=== PATIENT | female | born 1965 | race American Indian/Alaskan Native ===

== ENCOUNTER 2018-08-27 08:46 | Emergency (ER) | payer BC ==
[2018-08-27 08:53] VITALS: BP 143/82
--- NOTE | 2018-08-27 09:23 | Emergency Department Report ---
HPI - General Chief Complaint: Neck Pain/Injury Time Seen by Provider: 08/27/18 08:59 - HPI HPI: 53-year-old female presents to the emergency department with complaint of some anterior neck swelling that she has noticed over the past week . She feels like sometimes there is a fullness there and it makes it difficult to swallow, although she denies any drooling or trismus. On top of this, she also complains of some nonspecific fatigue. She denies any fever, actual sore throat, nausea, vomiting. She has a past medical history of hypertension and anemia. She goes to [facility] primary care. Her mother has a history of thyroid cancer. ED Past Medical Hx - Past Medical History Previous Medical History?: Yes Hx Hypertension: Yes Additional medical history: anemia - Surgical History Past Surgical History?: Yes Hx Appendectomy: Yes Additional Surgical History: fibroid - Social History Smoking Status: Never Smoker Substance Use Type: Alcohol, Prescribed - Medications Home Medications: Home Medications Medication Instructions Recorded Confirmed Last Taken Type Ibuprofen [Motrin] 800 mg PO Q8H PRN #14 tablet 03/15/14 Unknown Rx Metaxalone [Skelaxin] 800 mg PO TID PRN #15 tablet 09/29/15 Unknown Rx traMADol [Ultram 50 MG tab] 50 mg PO Q6HR PRN #14 tablet 09/29/15 Unknown Rx ED Review of Systems ROS: Stated complaint: NECK Other details as noted in HPI Constitutional: other (fatigue). denies: chills, fever Eyes: denies: eye pain, vision change ENT: throat pain. denies: ear pain Respiratory: denies: cough, shortness of breath Cardiovascular: denies: chest pain, palpitations Gastrointestinal: denies: abdominal pain, vomiting Genitourinary: denies: dysuria, discharge Musculoskeletal: denies: back pain, arthralgia Skin: denies: rash, lesions Neurological: denies: headache, numbness Physical Exam - Physical Exam Vital Signs: Vital Signs 08/27/18 08:49 Temperature 98.7 F Pulse Rate 94 H Respiratory 18 Rate Blood Pressure 143/82 O2 Sat by Pulse 99 Oximetry Physical Exam: GENERAL: The patient is well-developed well-nourished. HENT: Normocephalic. Atraumatic. Patient has moist mucous membranes. Oropharynx is clear. No drooling or trismus. EYES: Extraocular motions are intact. Pupils equal reactive to light bilaterally. NECK: Supple. Trachea is midline. There is some anterior neck fullness concerning for a thyroid goiter versus mass. CHEST/LUNGS: Clear to auscultation. There is no respiratory distress noted. HEART/CARDIOVASCULAR: Regular. There is no tachycardia. There is no murmur. ABDOMEN: Abdomen is soft, nontender. Patient has normal bowel sounds. There is no abdominal distention. SKIN: Skin is warm and dry. NEURO: The patient is awake, alert, and oriented. The patient is cooperative. The patient has normal speech. MUSCULOSKELETAL: There is no tenderness or deformity. There is no evidence of acute injury. ED Course Vital Signs 08/27/18 08:49 Temperature 98.7 F Pulse Rate 94 H Respiratory 18 Rate Blood Pressure 143/82 O2 Sat by Pulse 99 Oximetry ED Medical Decision Making - Lab Data Result diagrams: 08/27/18 09:28 08/27/18 09:28 - Radiology Data Radiology results: report reviewed EXAM: CT NECK WO CON HISTORY: Anterior neck swelling/pain. Fam hx of thyroid Ca X 1 WEEK AND A HALF. TECHNIQUE: Spiral axial CT images are obtained through the neck from the skull base to the thoracic inlet without the administration of intravenous contrast. Additional sagittal and coronal reformatted images are reconstructed. COMPARISON: None available. FINDINGS: ADENOIDS AND TONSILS: There is no gross enlargement of the adenoids to suggest adenoiditis/pharyngitis. The palatine and lingual tonsils are within normal limits. No tonsillar/peritonsillar fluid collection reminiscent of abscess is seen. No parapharyngeal or retropharyngeal fluid collection or abscess formation is noted. AERODIGESTIVE TRACT: The upper aerodigestive tract, including the epiglottis, vallecula, piriform sinuses, vocal cords, with vocal folds, and proximal trachea, are within normal limits. GLANDS: There is an approximately 3.5 cm CC by 2.2 cm transverse by 2.8 cm AP soft tissue mass in the medial left lobe of the thyroid tiny: DDX includes (but is not limited to) thyroid neoplasm. Correlation with ultrasound and/or nuclear medicine thyroid scan may be beneficial. The parotid glands and salivary glands are within normal limits. LYMPH NODES: There is nonspecific shotty submental (left greater than right), submandibular, and cervical chain lymphadenopathy, presumed reactive lymphadenopathy, but cannot rule out malignant lymphadenopathy; largest left submental lymph node measuring approximately 1.2 cm x 9.3 mm x 9.4 mm. CAROTID SHEATH: The carotid arteries and jugular veins appear grossly unremarkable for a non- dedicated exam. MUSCULOSKELETAL: The cervical muscles, including the sternocleidomastoid muscles and paraspinal muscles, are within normal limits. There is no abnormal soft tissue mass is seen. The visualized bony structures are within normal limits. MISCELLANEOUS: No radiodense foreign body is seen. There is a large (approximately 3.6 cm AP by 2.8 cm transverse by 2.7 cm CC) right maxillary sinus mass, presumed mucous retention cyst or polyp. Clinical correlation is advised. Correlation postcontrast CT and/or MRI may be beneficial for further characterization. IMPRESSION: 1. Approximately 3.5 cm CC by 2.2 cm transverse by 2.8 cm AP soft tissue mass in the medial left lobe of the thyroid tiny: DDX includes (but is not limited to) thyroid neoplasm. Correlation with ultrasound and/or nuclear medicine thyroid scan may be beneficial. 2. Large (approximately 3.6 cm AP by 2.8 cm transverse by 2.7 cm CC) right maxillary sinus mass, presumed mucous retention cyst or polyp. Clinical correlation is advised. Correlation postcontrast CT and/or MRI may be beneficial for further characterization. 3. Nonspecific shotty submental (left greater than right), submandibular, and cervical chain lymphadenopathy, presumed reactive lymphadenopathy, but cannot rule out malignant lymphadenopathy; largest left submental lymph node measuring approximately 1.2 cm x 9.3 mm x 9.4 mm. This document is electronically signed by Bere Taveras MD., August 27 2018 10:56:33 AM ET Transcribed By: [facility] Dictated By: BERE TAVERAS Electronically Authenticated By: BERE TAVERAS Signed Date/Time: 08/27/18 1058 - Medical Decision Making This patient presents to the emergency department with a complaint of some anterior neck swelling. On examination it does feel full in that area and may be consistent with a goiter versus nodule. For this reason I ordered a CT scan of the neck that came back showing a 3.5 x 2.2 left sided thyroid soft tissue mass. There was also a right maxillary sinus mass that is presumed to be a mucus retention cyst or polyp. And there was also some lymphadenopathy found. With these findings, and with the patient's family history of her mother having thyroid cancer, the patient understands the importance of close follow-up with ENT or surgery for further evaluation of this thyroid mass. The patient's oropharynx is clear. She has no signs of any drooling or trismus, respiratory issues. Labs were unremarkable including normal thyroid function. She appears safe for discharge home at this time. She was given a disc with the images to bring with her to her primary care physician and she was given 2 referrals for otolaryngology. She will return to the ER with any worsening of her symptoms or any acute distress. - Differential Diagnosis thyroid goiter, thyroid cancer, brachial cleft cyst Critical Care Time: No Critical care attestation.: If time is entered above; I have spent that time in minutes in the direct care of this critically ill patient, excluding procedure time. ED Disposition Clinical Impression: Thyroid mass, Maxillary sinus mass Disposition: TO HOME OR SELFCARE Is pt being admited?: No Condition: Stable Instructions: Thyroid Nodules (ED) Additional Instructions: While I have given you information regarding thyroid nodules, your CT scan showed a left soft tissue thyroid mass that needs further evaluation and close follow up. I have given you two different ENT physicians/otolaryngologists but you are free to see whomever you choose. I also recommend that you follow up with your primary care physician regarding your symptoms and these findings. Return to the emergency department immediately with any worsening of her symptoms, development of shortness of breath, inability to swallow, and with any acute distress. Referrals: [facility] MD SOHEILA [Primary Care Provider] - CUAUHTEMOC TALBERT MD [Staff Physician] - 2-3 Days PHUC GUTIERREZ MD [Staff Physician] - 2-3 Days Time of Disposition: 11:14
[2018-08-27 09:50] LABS: Basophils % (Auto) 0.4 % (0.0-1.8); Eosinophils # (Auto) 0.1 K/mm3 (0.0-0.4); Eosinophils % (Auto) 0.9 % (0.0-4.3); Hematocrit 38.2 % (30.3-42.9); Lymphocytes # (Auto) 1.7 K/mm3 (1.2-5.4); Lymphocytes % (Auto) 24.8 % (13.4-35.0); Mean Corpuscular HGB Conc 34 % (30-34); Mean Corpuscular Volume 94 fl (79-97); Monocytes # (Auto) 0.4 K/mm3 (0.0-0.8); Monocytes % (Auto) 6.1 % (0.0-7.3); Platelet Count 253 K/mm3 (140-440); Red Blood Count 4.04 M/mm3 (3.65-5.03); Red Cell Distribution Width 14.5 % (13.2-15.2)
[2018-08-27 10:10] LABS: BUN/Creatinine Ratio 15; Blood Urea Nitrogen 12 mg/dL (7-17); Calcium 9.2 mg/dL (8.4-10.2); Hemolysis Index 5
--- NOTE | 2018-08-27 10:58 | Cat Scan Report ---
EXAM: CT NECK WO CON HISTORY: Anterior neck swelling/pain. Fam hx of thyroid Ca X 1 WEEK AND A HALF. TECHNIQUE: Spiral axial CT images are obtained through the neck from the skull base to the thoracic i nlet without the administration of intravenous contrast. Additional sagittal and coronal reformatted images are reconstructed. COMPARISON: None available. FINDINGS: ADENOIDS AND TONSILS: There is no gross enlargement of the adenoids to suggest adenoiditis/pharyngiti s. The palatine and lingual tonsils are within normal limits. No tonsillar/peritonsillar fluid collec tion reminiscent of abscess is seen. No parapharyngeal or retropharyngeal fluid collection or abscess formation is noted. AERODIGESTIVE TRACT: The upper aerodigestive tract, including the epiglottis, vallecula, piriform sin uses, vocal cords, with vocal folds, and proximal trachea, are within normal limits. GLANDS: There is an approximately 3.5 cm CC by 2.2 cm transverse by 2.8 cm AP soft tissue mass in the medial left lobe of the thyroid tiny: DDX includes (but is not limited to) thyroid neoplasm. Correla tion with ultrasound and/or nuclear medicine thyroid scan may be beneficial. The parotid glands and s alivary glands are within normal limits. LYMPH NODES: There is nonspecific shotty submental (left greater than right), submandibular, and cerv ical chain lymphadenopathy, presumed reactive lymphadenopathy, but cannot rule out malignant lymphade nopathy; largest left submental lymph node measuring approximately 1.2 cm x 9.3 mm x 9.4 mm. CAROTID SHEATH: The carotid arteries and jugular veins appear grossly unremarkable for a non-dedicate d exam. MUSCULOSKELETAL: The cervical muscles, including the sternocleidomastoid muscles and paraspinal muscl es, are within normal limits. There is no abnormal soft tissue mass is seen. The visualized bony st ructures are within normal limits. MISCELLANEOUS: No radiodense foreign body is seen. There is a large (approximately 3.6 cm AP by 2.8 c m transverse by 2.7 cm CC) right maxillary sinus mass, presumed mucous retention cyst or polyp. Clini kristen correlation is advised. Correlation postcontrast CT and/or MRI may be beneficial for further concetta acterization. IMPRESSION: 1. Approximately 3.5 cm CC by 2.2 cm transverse by 2.8 cm AP soft tissue mass in the medial left lob e of the thyroid tiny: DDX includes (but is not limited to) thyroid neoplasm. Correlation with ultras ound and/or nuclear medicine thyroid scan may be beneficial. 2. Large (approximately 3.6 cm AP by 2.8 cm transverse by 2.7 cm CC) right maxillary sinus mass, pre sumed mucous retention cyst or polyp. Clinical correlation is advised. Correlation postcontrast CT an d/or MRI may be beneficial for further characterization. 3. Nonspecific shotty submental (left greater than right), submandibular, and cervical chain lymphad enopathy, presumed reactive lymphadenopathy, but cannot rule out malignant lymphadenopathy; largest l eft submental lymph node measuring approximately 1.2 cm x 9.3 mm x 9.4 mm. This document is electronically signed by Biju Almanza MD., August 27 2018 10:56:33 AM ET
== END 2018-08-27 12:08 | disposition home or self-care (01) ==
LOC: ED 08:46
DX: E07.89 Other specified disorders of thyroid (principal); J34.89 Other specified disorders of nose and nasal sinuses; I10 Essential (primary) hypertension
CPT/HCPCS: 36415; 70490; 80048; 84443; 85025; 87116; 87430